=== PATIENT | female | born 1995 | race Caucasian/White ===

== ENCOUNTER 2024-03-07 10:31 | Emergency (ER) | payer OTHER, SELFPAY ==
[2024-03-07 10:45] VITALS: BP 121/71; PULSE 86; RESP 16; TEMP 36.6; O2SAT 99
--- NOTE | 2024-03-07 10:48 | ED.URI ---
HPI - URI/Sore Throat General Chief Complaint: Upper Respiratory Infection Stated Complaint: sore throat Time Seen by Provider: 03/07/24 10:48 Source: patient, family, RN notes reviewed and old records reviewed Mode of arrival: ambulatory Limitations: no limitations History of Present Illness HPI Narrative: Patient presents with complaints of 5 days of runny nose and sore throat. She reports that she was not worried until symptoms began dragging out for this long. She is concerned about strep throat. She does have a 2-month-old that she reports was tested for COVID in flu yesterday, child was negative. Patient reports that she does not wish to be tested for anything other than strep throat. She denies any fever. She denies any difficulty swallowing. She is in no distress. She denies any injury or trauma. Has been taking NyQuil for her symptoms with moderate relief. Related Data Home Medications Medication Instructions Recorded Confirmed vits no.126-ferrous fum 1 tablet PO DAILY 03/07/24 03/07/24 28 mg iron-folic acid 800 mcg tablet (Classic ) Allergies Allergy/AdvReac Type Severity Reaction Status Date / Time No Known Allergies Allergy Verified 03/07/24 10:40 Review of Systems Review of Systems: All systems reviewed & are unremarkable except as noted in HPI and below Constitutional: Constitutional: Reports no additional constitutional complaints ENT: Reports system reviewed and no additional complaints, except as documented, Reports nasal discharge and Reports sore throat Cardiovascular: Cardiovascular: Reports no additional cardiovascular complaints Respiratory: Respiratory: Reports no additional respiratory complaints Gastrointestinal: Gastrointestinal: Reports no additional gastrointestinal complaints Exam Const: General: cooperative, no acute distress, alert and awake Orientation/consciousness: oriented to person, oriented to place and oriented to time HENMT: Head: normal to inspection Ears: TM's normal bilaterally Mouth: Yes moist mucous membranes Throat: posterior oropharynx abnormal erythema Resp: Effort & Inspection: normal respiratory effort and able to speak in complete sentences Auscultation: clear to auscultation bilaterally, no crackles, no rales, no rhonchi and no wheezes Cardio: Palpation: normal PMI Rate: regular rate Rhythm: regular rhythm Heart sounds: S1 normal heart sound present and S2 normal heart sound present Neuro: General: oriented to person, oriented to place and oriented to time Cranial nerves: Yes CN's II-XII intact bilaterally Psych: Appearance: grossly normal Thought process: Normal thought process present Insight: Good insight present (Psych) Judgement: Good judgement present (Psych) Course Course Level of Care: Express Care Visit Vital Signs Vital signs: Vital Signs Temperature 97.9 F 03/07/24 10:45 Pulse Rate 86 03/07/24 10:45 Respiratory Rate 16 03/07/24 10:45 Blood Pressure 121/71 03/07/24 10:45 Pulse Oximetry 99 03/07/24 10:45 Oxygen Delivery Room Air 03/07/24 10:45 Temperature 97.9 F 03/07/24 10:45 Pulse Rate 86 03/07/24 10:45 Respiratory Rate 16 03/07/24 10:45 Blood Pressure 121/71 03/07/24 10:45 Pulse Oximetry 99 03/07/24 10:45 Oxygen Delivery Room Air 03/07/24 10:45 MDM - URI/Sore Throat MDM Narrative Medical decision making narrative: Negative strep, culture pending. Patient advised to continue with supportive care measures. She is nontoxic appearing. Stable for discharge home. Discharge instructions reviewed with patient, as well as provided in writing per nursing staff. The instructions also include specific and strict return/GO TO THE ER as well as f/u information. All questions have been answered, and the patient deny any further questions with discharge and discharge plan. Some parts of this dictation were generated by voice recognition software and may contain typographical and/or grammatical inaccuracies. Differential Diagnosis Differential diagnosis: Likely upper respiratory infection, sinusitis and pharyngitis Medical Records Attestation: I reviewed the patient's medical records. Lab Data Attestation: I reviewed the patient's lab results. Discharge Plan Discharge Clinical Impression: Upper respiratory infection Qualifiers: URI type: unspecified viral URI Qualified Code(s): J06.9 - Acute upper respiratory infection, unspecified Patient Disposition: Home, Self-Care Condition: Stable Instructions: Antibiotic Form, Cold Symptoms (ED) Additional Instructions: Take medications as prescribed. Follow with primary care provider. Emergency department for new or worse symptoms Patient Language: [place] Prescriptions: No Action Classic 28 mg iron- 800 mcg Tablet 1 tablet PO DAILY Follow-up/Referrals: PHYSICIAN,MANUFACTURING QUALITY ENGINEER [Primary Care Provider] - Time of Disposition: 11:04
[2024-03-07 10:54] LABS: EDSTREPNEGPOS1 Negative (Negative)
== END 2024-03-07 11:12 | disposition home or self-care (01) ==
PROVIDERS: Emergency Provider Nurse Practitioner Family
DX: J06.9 Acute upper respiratory infection, unspecified (principal)
CPT/HCPCS: 87081; 87880; 99213; G0463